=== PATIENT | female | born 1995 | race Caucasian/White ===

== ENCOUNTER 2017-11-07 15:03 | Emergency (ER) | payer OTHER, MEDICAID ==
[~2017-11-07] VITALS: Ht 167.6 cm; Wt 117.9 kg
[~2017-11-07 15:03] MED LIST: ACETAMINOPHEN-1 EAC1 PO; AMOXICILLIN 50500 MG PO; DOXYCYCLINE 10100 M1 PO; MOBIC7.5 MG PO; NOHOMEMEDICATIONS; PENICILLIN V P500 MG PO; TYLENOL WITH CO1 TA1 PO; ZOFRAN ODT4 MG PO
[2017-11-07] MEDS ORDERED: ULTRAM 50MG TAB50 MG PO (16:36)
[2017-11-07] MEDS ORDERED: FLEXERIL PO (16:36)
[2017-11-07 16:43] VITALS: BP 129/76
--- NOTE | 2017-11-08 13:34 | EKG ---
[place] [address] ELECTROCARDIOGRAM REPORT Name: SULLY MONROE Room: [facility].#: [id number] Admission: 11/07/17 Attend Phys: Discharge: 11/07/17 Date of : [birth year] Report #: [id number] THIS REPORT FOR: //name// [facility] ED Test Date: 2017-11-07 Test Time: 15:10:11 Pat Name: SULLY MONROE Department: Room: Gender: F Rate Inserter: Alison CHOI : 1995 Requested By: ESTER Order Number: [id number] Cleve MD: Philippe Baird Measurements Intervals Show Low Rate: 81 P: 8 SC: 146 QRS: -6 QRSD: 106 T: 17 QT: 377 QTc: 438 Interpretive Statements Sinus rhythm RSR' in V1 or V2, right VCD or RVH No previous ECG available for comparison Electronically Signed On 11-08-2017 13:34:40 CDT by Philippe Baird [email or web address] <ELECTRONICALLY SIGNED> By: Philippe Baird MD, [facility] 11/08/17 1334 1510 09 Philippe Baird MD, FACC /EPI
== END 2017-11-07 16:44 | disposition home or self-care (01) ==
LOC: M.ERS 15:03
DX: S16.1XXA Strain of muscle, fascia and tendon at neck level, initial encounter (principal); F17.210 Nicotine dependence, cigarettes, uncomplicated; Z88.6 Allergy status to analgesic agent; V89.2XXA Person injured in unspecified motor-vehicle accident, traffic, initial encounter; Y93.89 Activity, other specified; Y92.89 Other specified places as the place of occurrence of the external cause; Y99.8 Other external cause status

== ENCOUNTER 2018-02-18 21:01 | Emergency (ER) | payer OTHER ==
[~2018-02-18] VITALS: Ht 167.6 cm; Wt 120.2 kg
[~2018-02-18 21:01] MED LIST changes: +FLEXERIL PO; +ULTRAM 50MG TAB50 MG PO
[2018-02-18 22:01] VITALS: BP 149/92
== END 2018-02-18 22:03 | disposition home or self-care (01) ==
LOC: M.ERS 21:01
DX: S91.332A Puncture wound without foreign body, left foot, initial encounter (principal); F17.210 Nicotine dependence, cigarettes, uncomplicated; Z88.6 Allergy status to analgesic agent; W45.0XXA Nail entering through skin, initial encounter; Y93.89 Activity, other specified; Y92.89 Other specified places as the place of occurrence of the external cause; Y99.8 Other external cause status

== ENCOUNTER 2018-08-28 19:02 | Emergency (ER) | payer OTHER ==
[~2018-08-28] VITALS: Ht 167.6 cm; Wt 118.8 kg
[2018-08-28 20:11] LABS: URINE BILIRUBIN NEGATIVE (Negative); URINE BLOOD NEGATIVE (Negative); URINE CLARITY CLEAR; URINE COLOR YELLOW; URINE GLUCOSE-RANDOM NEGATIVE (Negative); URINE KETONES TRACE (Negative); URINE LEUKOCYTES NEGATIVE (Negative); URINE NITRITE NEGATIVE (Negative); URINE PROTEIN NEGATIVE (Negative); URINE SPECIFIC GRAVITY >= 1.030 (1.005-1.030); URINE UROBILINOGEN 0.2 E.U./dl (0.2-1.0)
[2018-08-28 20:14] LABS: ABSOLUTE BASOPHILS 0.1 thou/uL (0.0-0.2); ABSOLUTE EOSINOPHILS 0.3 thou/uL (0.0-0.7); ABSOLUTE LYMPHOCYTES 2.9 thou/uL (0.8-5.3); ABSOLUTE MONOCYTES 0.7 thou/uL (0.0-1.2); ABSOLUTE NEUTROPHILS 5.8 thou/uL (1.6-8.1); BASOPHILS 0.9 %; EOSINOPHILS 3.3 %; HEMATOCRIT 40.1 % (37.0-47.0); HEMOGLOBIN 13.6 gm/dL (12.0-15.0); LYMPHOCYTES 29.3 %; MCH 29.3 pg (26.0-34.0); MCV 86.2 fL (80.0-100.0); MONOCYTES 7.2 %; MPV 9.4 fl. (7.2-11.1); NUCLEATED RBCS 0 /100WBC; PLATELET COUNT* 271 thou/uL (150-400); POLYS 59.3 %; RBC 4.65 mil/uL (4.20-5.00); RDW-CV 14.6 % (10.5-14.5); WBC 9.8 thou/uL (4.0-11.0)
[2018-08-28 20:24] LABS: CALCIUM 9.6 mg/dL (8.5-10.1); CREATININE 0.9 mg/dL (0.6-1.3); POTASSIUM 3.4 mmol/L (3.5-5.1); TOTAL BILIRUBIN 0.2 mg/dL (<0.1-1.0)
[2018-08-28 21:45] VITALS: BP 115/68
== END 2018-08-28 21:45 | disposition home or self-care (01) ==
LOC: M.ERS 19:02
PROVIDERS: Physician Assistant
DX: E86.0 Dehydration (principal); E87.6 Hypokalemia; B34.9 Viral infection, unspecified; F17.210 Nicotine dependence, cigarettes, uncomplicated; Z98.890 Other specified postprocedural states; Z88.6 Allergy status to analgesic agent

== ENCOUNTER 2018-09-04 10:31 | Emergency (ER) | payer OTHER ==
[~2018-09-04] VITALS: Ht 167.6 cm; Wt 117.9 kg
[2018-09-04 10:36] VITALS: BP 117/71
[2018-09-04] MEDS ORDERED: TRIAMCINOLONE A80 G2 TOP (10:56)
[2018-09-04] MEDS ORDERED: MEDROLDOSEPACK PO (10:56)
[2018-09-04] MEDS ORDERED: HYDROXYZINE HCL25 M2 PO (10:56)
== END 2018-09-04 11:10 | disposition home or self-care (01) ==
LOC: M.ERS 10:31
DX: L25.9 Unspecified contact dermatitis, unspecified cause (principal); F17.210 Nicotine dependence, cigarettes, uncomplicated; Z88.6 Allergy status to analgesic agent; Z98.890 Other specified postprocedural states

== ENCOUNTER 2018-10-16 11:32 | Emergency (ER) | payer OTHER ==
[~2018-10-16] VITALS: Ht 170.2 cm; Wt 121.1 kg
[~2018-10-16 11:32] MED LIST changes: +HYDROXYZINE HCL25 M2 PO; +MEDROLDOSEPACK PO; +TRIAMCINOLONE A80 G2 TOP
[2018-10-16 12:15] LABS: CALCIUM 9.6 mg/dL (8.5-10.1); CREATININE 0.7 mg/dL (0.6-1.3); POTASSIUM 4.1 mmol/L (3.5-5.1)
[2018-10-16 14:03] VITALS: BP 136/81
== END 2018-10-16 14:05 | disposition home or self-care (01) ==
LOC: M.ERS 11:32
PROVIDERS: Nurse Practitioner Family
DX: R25.2 Cramp and spasm (principal); F17.210 Nicotine dependence, cigarettes, uncomplicated; Z98.890 Other specified postprocedural states

== ENCOUNTER 2019-01-08 18:56 | Emergency (ER) | payer OTHER ==
[~2019-01-08] VITALS: Ht 167.6 cm; Wt 121.6 kg
[2019-01-08 19:21] VITALS: BP 120/77
== END 2019-01-08 19:31 | disposition left against medical advice (07) ==
LOC: M.ERS 18:56
DX: Z53.21 Procedure and treatment not carried out due to patient leaving prior to being seen by health care provider (principal)

== ENCOUNTER 2019-01-31 14:24 | Emergency (ER) | payer OTHER ==
[~2019-01-31] VITALS: Ht 167.6 cm; Wt 124.7 kg
[2019-01-31] MEDS ORDERED: MOBIC7.5 MG PO (15:33)
[2019-01-31 15:57] VITALS: BP 137/78
== END 2019-01-31 16:00 | disposition home or self-care (01) ==
LOC: M.ERS 14:24
DX: Z98.890 Other specified postprocedural states (principal); S93.505A Unspecified sprain of left lesser toe(s), initial encounter; Z88.5 Allergy status to narcotic agent; W23.0XXA Caught, crushed, jammed, or pinched between moving objects, initial encounter; Y93.89 Activity, other specified; Y92.89 Other specified places as the place of occurrence of the external cause; Y99.8 Other external cause status

== ENCOUNTER 2019-06-03 12:26 | Emergency (ER) | payer OTHER ==
[~2019-06-03] VITALS: Ht 167.6 cm; Wt 122.5 kg
[2019-06-03 12:59] LABS: URINE BILIRUBIN NEGATIVE (Negative); URINE BLOOD 2+ (Negative); URINE CLARITY CLEAR; URINE COLOR YELLOW; URINE GLUCOSE-RANDOM NEGATIVE (Negative); URINE KETONES NEGATIVE (Negative); URINE NITRITE-REFLEX NEGATIVE (Negative); URINE PROTEIN TRACE (Negative); URINE UROBILINOGEN 0.2 E.U./dl (0.2-1.0)
[2019-06-03 13:00] LABS: URINE LEUKOCYTES-REFLEX 3+ (Negative)
[2019-06-03 13:10] LABS: SQUAMOUS 4-10 Moderate /LPF (0-3)
[2019-06-03 13:11] LABS: AMORPHOUS URATES Few /LPF (None Seen); CASTS None Seen /LPF (None Seen); MUCUS 4-6 Moderate strn/LPF (None Seen); URINE RBC 3-10 Few /HPF (0-2)
[2019-06-03 13:14] LABS: ABSOLUTE BASOPHILS 0.1 thou/uL (0.0-0.2); ABSOLUTE EOSINOPHILS 0.1 thou/uL (0.0-0.7); ABSOLUTE LYMPHOCYTES 1.6 thou/uL (0.8-5.3); ABSOLUTE MONOCYTES 0.4 thou/uL (0.0-1.2); ABSOLUTE NEUTROPHILS 6.5 thou/uL (1.6-8.1); BASOPHILS 0.8 %; EOSINOPHILS 1.7 %; HEMOGLOBIN 13.5 gm/dL (12.0-15.0); LYMPHOCYTES 18.8 %; MCH 29.2 pg (26.0-34.0); MCHC 33.6 g/dL (28.0-37.0); MCV 86.8 fL (80.0-100.0); MONOCYTES 4.9 %; MPV 8.8 fl. (7.2-11.1); NUCLEATED RBCS 0 /100WBC; PLATELET COUNT* 287 thou/uL (150-400); POLYS 73.8 %; RBC 4.61 mil/uL (4.20-5.00); RDW-CV 13.9 % (10.5-14.5); WBC 8.8 thou/uL (4.0-11.0)
[2019-06-03 13:32] LABS: CALCIUM 9.1 mg/dL (8.5-10.1); CREATININE 0.8 mg/dL (0.6-1.3); POTASSIUM 3.9 mmol/L (3.5-5.1)
[2019-06-03 13:45] LABS: ALBUMIN 3.6 g/dL (3.4-5.0); TOTAL BILIRUBIN 0.5 mg/dL (<0.1-1.0); TOTAL PROTEIN 7.6 g/dL (6.4-8.2)
[2019-06-03] MEDS ORDERED: ZANAFLEX4 MG PO (14:53)
[2019-06-03] MEDS ORDERED: PYRIDIUM100 M1 PO (14:53)
[2019-06-03] MEDS ORDERED: MACROBID 100 M100 M2 PO (14:53)
[2019-06-03 15:12] VITALS: BP 137/80
== END 2019-06-03 15:13 | disposition home or self-care (01) ==
LOC: M.ERS 12:26
PROVIDERS: Nurse Practitioner Family
DX: N39.0 Urinary tract infection, site not specified (principal); M54.5 Low back pain; F17.210 Nicotine dependence, cigarettes, uncomplicated; Z90.89 Acquired absence of other organs; Z85.820 Personal history of malignant melanoma of skin; Z88.5 Allergy status to narcotic agent

== ENCOUNTER 2019-07-17 11:25 | Emergency (ER) | payer OTHER ==
[~2019-07-17] VITALS: Ht 167.6 cm; Wt 129.7 kg
[~2019-07-17 11:25] MED LIST changes: +MACROBID 100 M100 M2 PO; +PYRIDIUM100 M1 PO; +ZANAFLEX4 MG PO
[2019-07-17 11:30] VITALS: BP 150/82
[2019-07-17] MEDS ORDERED: CORTISPORIN OTI10 ML OTIC (11:42)
== END 2019-07-17 11:58 | disposition home or self-care (01) ==
LOC: M.ERS 11:25
DX: H61.893 Other specified disorders of external ear, bilateral (principal); F17.210 Nicotine dependence, cigarettes, uncomplicated; Z88.5 Allergy status to narcotic agent; Z90.89 Acquired absence of other organs

== ENCOUNTER 2019-07-21 08:04 | Emergency (ER) | payer OTHER ==
[~2019-07-21] VITALS: Ht 167.6 cm; Wt 127.0 kg
[~2019-07-21 08:04] MED LIST changes: +CORTISPORIN OTI10 ML OTIC
[2019-07-21 08:31] LABS: INFLUENZA A ANTIGEN Negative (Negative); INFLUENZA B ANTIGEN Negative (Negative)
[2019-07-21 08:38] VITALS: BP 129/76
== END 2019-07-21 08:38 | disposition home or self-care (01) ==
LOC: M.ERS 08:04
PROVIDERS: Family Medicine
DX: J06.9 Acute upper respiratory infection, unspecified (principal); F17.210 Nicotine dependence, cigarettes, uncomplicated; Z90.89 Acquired absence of other organs; Z88.5 Allergy status to narcotic agent

== ENCOUNTER 2019-08-06 11:48 | Emergency (ER) | payer OTHER ==
[~2019-08-06] VITALS: Ht 167.6 cm; Wt 127.0 kg
[2019-08-06 12:15] LABS: INFLUENZA A ANTIGEN Positive (Negative); INFLUENZA B ANTIGEN Negative (Negative)
[2019-08-06] MEDS ORDERED: PROMETHAZI6.25 MG/5 PO (12:33)
[2019-08-06] MEDS ORDERED: TYLENOL WITH CO1 TA1 PO (12:33)
[2019-08-06] MEDS ORDERED: TESSALON PERLE100 MG PO (12:33)
[2019-08-06] MEDS ORDERED: ONDANSETRON HCL4 M3 PO (12:33)
[2019-08-06 12:43] VITALS: BP 146/87
== END 2019-08-06 12:44 | disposition home or self-care (01) ==
LOC: M.ERS 11:48
PROVIDERS: Physician Assistant
DX: J10.1 Influenza due to other identified influenza virus with other respiratory manifestations (principal); F17.210 Nicotine dependence, cigarettes, uncomplicated; Z90.89 Acquired absence of other organs

== ENCOUNTER 2019-11-28 13:47 | Emergency (ER) | payer OTHER ==
[~2019-11-28] VITALS: Ht 167.6 cm; Wt 127.0 kg
[~2019-11-28 13:47] MED LIST changes: +ONDANSETRON HCL4 M3 PO; +PROMETHAZI6.25 MG/5 PO; +TESSALON PERLE100 MG PO
[2019-11-28 13:56] VITALS: BP 143/93
[2019-11-28] MEDS ORDERED: DOXYCYCLINE 10100 MG PO (14:06)
== END 2019-11-28 14:20 | disposition home or self-care (01) ==
LOC: M.ERS 13:47
DX: T14.8XXA Other injury of unspecified body region, initial encounter (principal); F17.200 Nicotine dependence, unspecified, uncomplicated; Z90.89 Acquired absence of other organs; Z88.6 Allergy status to analgesic agent; W57.XXXA Bitten or stung by nonvenomous insect and other nonvenomous arthropods, initial encounter; Y93.89 Activity, other specified; Y92.89 Other specified places as the place of occurrence of the external cause; Y99.8 Other external cause status

== ENCOUNTER 2020-01-12 14:49 | Emergency (ER) | payer OTHER ==
[~2020-01-12] VITALS: Ht 167.6 cm; Wt 131.5 kg
[~2020-01-12 14:49] MED LIST changes: +DOXYCYCLINE 10100 MG PO
[2020-01-12 16:58] LABS: ABSOLUTE BASOPHILS 0.1 thou/uL (0.0-0.2); ABSOLUTE EOSINOPHILS 0.2 thou/uL (0.0-0.7); ABSOLUTE LYMPHOCYTES 1.9 thou/uL (0.8-5.3); ABSOLUTE MONOCYTES 0.6 thou/uL (0.0-1.2); ABSOLUTE NEUTROPHILS 6.2 thou/uL (1.6-8.1); BASOPHILS 0.9 %; EOSINOPHILS 1.8 %; HEMATOCRIT 37.7 % (37.0-47.0); HEMOGLOBIN 12.9 gm/dL (12.0-15.0); LYMPHOCYTES 21.1 %; MCH 29.8 pg (26.0-34.0); MCHC 34.1 g/dL (28.0-37.0); MCV 87.4 fL (80.0-100.0); MONOCYTES 7.1 %; MPV 9.1 fl. (7.2-11.1); NUCLEATED RBCS 0 /100WBC; PLATELET COUNT* 271 thou/uL (150-400); POLYS 69.1 %; RBC 4.31 mil/uL (4.20-5.00); RDW-CV 13.9 % (10.5-14.5)
[2020-01-12 17:05] LABS: URINE BLOOD NEGATIVE (Negative); URINE CLARITY SL CLOUDY; URINE COLOR YELLOW; URINE GLUCOSE-RANDOM NEGATIVE (Negative); URINE KETONES NEGATIVE (Negative); URINE LEUKOCYTES-REFLEX NEGATIVE (Negative); URINE NITRITE-REFLEX NEGATIVE (Negative); URINE PROTEIN NEGATIVE (Negative); URINE SPECIFIC GRAVITY 1.015 (1.005-1.030); URINE UROBILINOGEN 0.2 E.U./dl (0.2-1.0)
[2020-01-12 17:08] LABS: ICTOTEST (BILI CONFIRMATORY) Negative (Negative); URINE BILIRUBIN 1+ (Negative)
[2020-01-12 17:10] LABS: CALCIUM 8.7 mg/dL (8.5-10.1); POTASSIUM 3.7 mmol/L (3.5-5.1)
[2020-01-12 17:12] LABS: AMORPHOUS PHOSPHATES Moderate /LPF (None Seen); BACTERIA-REFLEX >30 Many /HPF (None Seen); CASTS None Seen /LPF (None Seen); MUCUS >6 Heavy strn/LPF (None Seen); SQUAMOUS >10 Many /LPF (0-3); URINE RBC 0-2 Rare /HPF (0-2); URINE WBC-REFLEX 0-5 Rare /HPF (0-5)
[2020-01-12 17:15] LABS: ALBUMIN 3.6 g/dL (3.4-5.0); TOTAL BILIRUBIN 0.2 mg/dL (<0.1-1.0); TOTAL PROTEIN 7.8 g/dL (6.4-8.2)
[2020-01-12] MEDS ORDERED: CIPRO500 MG PO (18:20)
[2020-01-12] MEDS ORDERED: TYLENOL WITH CO1 TA1 PO (18:20)
[2020-01-12] MEDS ORDERED: FLAGYL500 M1 PO (18:20)
[2020-01-12 18:55] VITALS: BP 123/65
== END 2020-01-12 18:56 | disposition home or self-care (01) ==
LOC: M.ERS 14:49
PROVIDERS: Physician Assistant
DX: R10.32 Left lower quadrant pain (principal); F17.210 Nicotine dependence, cigarettes, uncomplicated; Z90.49 Acquired absence of other specified parts of digestive tract; Z88.6 Allergy status to analgesic agent

== ENCOUNTER 2020-02-16 12:23 | Emergency (ER) | payer OTHER ==
[~2020-02-16] VITALS: Ht 167.6 cm; Wt 133.8 kg
[~2020-02-16 12:23] MED LIST changes: +CIPRO500 MG PO; +FLAGYL500 M1 PO
[2020-02-16 12:30] VITALS: BP 118/78
[2020-02-16] MEDS ORDERED: FLEXERIL PO (12:53)
[2020-02-16] MEDS ORDERED: NORCO 5-325 TA1 EAC2 PO (12:53)
[2020-02-16] MEDS ORDERED: IBUPROFEN 800800 M1 PO (12:53)
[2020-02-16 13:26] LABS: CALCIUM 8.8 mg/dL (8.5-10.1); CREATININE 0.8 mg/dL (0.6-1.3)
== END 2020-02-16 13:43 | disposition home or self-care (01) ==
LOC: M.ERS 12:23
PROVIDERS: Emergency Medicine Emergency Medical Services
DX: S70.12XA Contusion of left thigh, initial encounter (principal); S70.11XA Contusion of right thigh, initial encounter; M62.838 Other muscle spasm; F17.210 Nicotine dependence, cigarettes, uncomplicated; Z90.49 Acquired absence of other specified parts of digestive tract; Z88.6 Allergy status to analgesic agent; W22.8XXA Striking against or struck by other objects, initial encounter; Y93.17 Activity, water skiing and wake boarding; Y92.89 Other specified places as the place of occurrence of the external cause; Y99.8 Other external cause status

== ENCOUNTER 2020-06-28 20:33 | Emergency (ER) | payer OTHER ==
[~2020-06-28] VITALS: Ht 165.1 cm; Wt 129.7 kg
[~2020-06-28 20:33] MED LIST changes: +IBUPROFEN 800800 M1 PO; +NORCO 5-325 TA1 EAC2 PO
[2020-06-28 21:28] LABS: URINE BILIRUBIN NEGATIVE (Negative); URINE BLOOD TRACE (Negative); URINE CLARITY CLEAR; URINE COLOR YELLOW; URINE GLUCOSE-RANDOM NEGATIVE (Negative); URINE KETONES NEGATIVE (Negative); URINE LEUKOCYTES-REFLEX NEGATIVE (Negative); URINE NITRITE-REFLEX NEGATIVE (Negative); URINE PROTEIN NEGATIVE (Negative); URINE SPECIFIC GRAVITY >= 1.030 (1.005-1.030); URINE UROBILINOGEN 0.2 E.U./dl (0.2-1.0)
[2020-06-28] MEDS ORDERED: TORADOL 10 MG T10 MG PO (22:44)
[2020-06-28] MEDS ORDERED: TAMSULOSIN HCL0.4 MG PO (22:44)
[2020-06-28 22:54] VITALS: BP 128/84
== END 2020-06-28 22:55 | disposition home or self-care (01) ==
LOC: M.ERS 20:33
PROVIDERS: Nurse Practitioner Family
DX: N23 Unspecified renal colic (principal); F17.210 Nicotine dependence, cigarettes, uncomplicated; Z90.89 Acquired absence of other organs; Z88.5 Allergy status to narcotic agent